=== PATIENT | female | born 1970 | race Caucasian/White ===

== ENCOUNTER 2021-03-18 12:13 | Emergency (ER) | payer BC, SELFPAY ==
--- NOTE | ~2021-03-18 | XR_ITS ---
EXAMINATION: XR TOES, LEFT CLINICAL INFORMATION: Trauma, pain third toe COMPARISON: None TECHNIQUE: AP view left foot and 2 views left third toe are obtained for a total of 3 views. FINDINGS: There is no acute or healing fracture or dislocation or destructive process. No periostitis or gas tracking in soft tissues. There is mild narrowing PIP joints without erosive change. The third toe distal phalanx is diminutive, possibly sequela from old trauma or congenital hypoplasia. There is probable old posttraumatic deformity second toe distal phalanx as well. A punctate density is seen overlying the lateral soft tissues proximal third toe of doubtful significance. XR/XR toe LT min 2V IMPRESSION: 1. No acute or healing fracture or destructive process. 2. Hypoplastic third toe distal phalanx versus old posttraumatic deformity.
[2021-03-18 12:35] VITALS: BP 141/103; PULSE 98; RESP 16; TEMP 37; O2SAT 99; BMI 31.6
[2021-03-18] MEDS: Acetaminophen 325 MG TABLET 975 MG PO (13:31)
[2021-03-18] MEDS: Diphth,Pertus(ACell),Tet Adult 0.5 ML SYRINGE IM (13:32)
--- NOTE | 2021-03-18 13:54 | ED.LOWEXIN ---
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) Type of Injury: other (dropped something on her foot ) Place: home Severity: mild Relieving factors: nothing Exacerbating factors: nothing Context: direct blow Associated symptoms: swelling Other symptoms: none Treatments prior to arrival: cold therapy Related Data Previous Rx's Medication Instructions Recorded acetaminophen [Tylenol Extra 1,000 mg PO QID PRN #14 tab 03/18/21 Strength] Allergies Allergy/AdvReac Type Severity Reaction Status Date / Time exenatide [From BYETTA] Allergy Severe ANAPHYLAXIS Unverified 06/17/20 17:12 erythromycin base AdvReac Intermediate STOMACH Unverified 06/17/20 17:12 [ERYTHROMYCIN BASE] UPSET WINE Allergy Unknown RASH Uncoded 06/17/20 17:12 Review of Systems Review of Systems: Constitutional : No changes in activity, No lethargy, No recent prior head injury, No agitation, No increased fussiness ENT/Mouth : No Ear Pain, No Nasal discharge/drainage Eyes: No Eye Pain, No Swelling, No Redness, No Foreign Body, No Vision Changes Cardiovascular : No Chest Pain, No SOB Respiratory : No Cough Gastrointestinal : No Nausea, No Vomiting, No abdominal Pain Genitourinary : No Dysuria, No Urinary Frequency, No Urinary Incontinence, No Urgency, No Flank Pain Musculoskeletal : + joint pain, No neck stiffness, No back pain/injury Skin : No lacerations Neuro : No unsteady gait, No Paresthesias, No Loss of Consciousness, No altered mental status, No Headache Yes all other systems are reviewed and are negative [facility] Past Medical History Attestation statement: The following information was validated with the patient. Social History Social History Advance Directives: No Advance Directives Information Provided: No Patient : No Physical Exam Vital Signs: Vital Signs: Last Vital Signs Temp 98.6 F 03/18/21 12:35 Pulse 98 03/18/21 12:35 Resp 16 03/18/21 12:35 BP 141/103 H 03/18/21 12:35 Pulse Ox 99 03/18/21 12:35 Body Mass Index 31.6 vital signs have been reviewed as normal and appeared to be correct. Blood pressure normal. Heart rate normal. Respiration rate normal. Temperature normal. Oxygen saturation normal. Appearance: Alert. Oriented X3. No acute distress. Head: Normal external exam. Normocephalic. Atraumatic. Eyes: PERRLA. EOMI. Conjunctiva and sclera normal. Eyelids normal. ENT: Pharynx normal. Uvula midline. Moist mucous membranes. Neck: Normal inspection. Neck supple. FROM. No adenopathy. No meningeal signs. No neck mass noted. CVS: Normal heart rate and rhythm. Heart sound normal. Pulses normal throughout. No murmurs/rales/gallops. Respiratory: No respiratory distress. Painless inspiration. Breath sounds normal. No wheezes/rales/rhonchi noted. Chest nontender. No accessory muscle usage noted or decreased air movement noted. Abdomen: Soft and nontender. Bowel sounds normal in all 4 quadrants. No distention noted. No organomegaly noted. No visible injury noted. Back: Full range of motion noted. No rashes/lesion/induration/fluctuance or signs of infection noted. Skin: Skin warm and dry. Normal skin color. Normal skin turgor. No rashes/lesions/lacerations noted. Extremities: Patient with tenderness to palpation at the MCP with a superficial abrasion. No active bleeding or signs of infection. No obvious deformities or laxity noted. Otherwise all other Extremities exhibit normal range of motion. Extremities nontender. Neuro: Oriented X 3. No motor deficit. No sensory deficit. Reflexes normal. Normal steady gait. No focal neuro deficits noted. Vascular: + radial pulses/+ 2 distal pedal pulses/+2 dorsalis pedis b/l. Normal cap refill. No cyanosis noted to upper extremity nails and lower extremity toes nails. Course Course Course Narrative: 50-year-old female presenting to the ED after she dropped something from the cabinet onto her left foot/toe she reports that she is having pain. X-ray negative for any acute processes. Patient has a superficial abrasion. No sutures indicated at this time. Updated the patient's tetanus at this time. Will DC home with symptomatic treatment instructions return if any new or worsening symptoms to follow up with primary care provider. Patient understands agrees with this plan. MDM - Extremity Injury (Lower) Medical Records Attestation: I reviewed the patient's medical records. Imaging Data Left foot x-ray: Attestation: I personally reviewed and interpreted this imaging study as follows: Radiologist's impression: FINDINGS: There is no acute or healing fracture or dislocation or destructive process. No periostitis or gas tracking in soft tissues. There is mild narrowing PIP joints without erosive change. The third toe distal phalanx is diminutive, possibly sequela from old trauma or congenital hypoplasia. There is probable old posttraumatic deformity second toe distal phalanx as well. A punctate density is seen overlying the lateral soft tissues proximal third toe of doubtful significance. XR/XR toe LT min 2V IMPRESSION: 1. No acute or healing fracture or destructive process. 2. Hypoplastic third toe distal phalanx versus old posttraumatic deformity. Discharge Plan Discharge Clinical Impression: Foot sprain, Abrasion foot/toe Patient Disposition: Home, Self-Care Instructions: Foot Sprain (ED), Abrasion (ED) Prescriptions: New acetaminophen [Tylenol Extra Strength] 500 mg tablet 1,000 mg PO QID PRN (Reason: fever or pain) Qty: 14 RF: 0 Referrals: Dameon Orlando MD [Primary Care Provider] - 2 days Print Language: Algerian
== END 2021-03-18 14:07 | disposition home or self-care (01) ==
PROVIDERS: Emergency Provider Emergency Medicine; PCP Internal Medicine
DX: S93.602A Unspecified sprain of left foot, initial encounter (principal); S90.812A Abrasion, left foot, initial encounter; W20.8XXA Other cause of strike by thrown, projected or falling object, initial encounter; Y93.9 Activity, unspecified; Y92.9 Unspecified place or not applicable; Y99.9 Unspecified external cause status
CPT/HCPCS: 73660; 90471; 90715; 99283; 99284

== ENCOUNTER 2021-10-29 15:17 | Outpatient (REF) | payer BC, SELFPAY | END 2021-10-29 15:18 | disposition home or self-care (01) | LOC: HO.LNP 15:17 | PROVIDERS: Visit Provider Physician Assistant Medical | DX: Z20.822 Contact with and (suspected) exposure to COVID-19 (principal) | CPT/HCPCS: U0003; U0005 ==

== ENCOUNTER 2025-07-03 08:44 | Outpatient (AMB) | payer OTHER, SELFPAY ==
--- NOTE | 2025-07-03 08:51 | A.OFFVIS_ITS ---
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 States she was seen at [facility] for trigger fingers where she received an injection in bilateral middle fingers on 12/13/24. States injection helped has helped her left middle finger however she has limited ROM. Her right middle finger is currently worse and would like to surgical intervention. 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 States she was seen at [facility] for trigger fingers where she received an injection in bilateral middle fingers on 12/13/24. States injection helped has helped her left middle finger however she has limited ROM. Her right middle finger is currently worse and would like to surgical intervention. 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 Neuro: Normal sensation of the tips of all digits of the right hand at this time Vascular: Cap refill brisk Pain: Tenderness to the A1 fatemeh of the right middle finger Pain associated with locking and catching of the right middle finger ROM: There is a visible and palpable locking and catching of the right middle finger in a flexed position Patient is able to flex and extend all other digits of the right hand fully and without difficulty Skin: No lacerations or abrasions. General: No ecchymosis, erythema, or evidence of infection. Psych: Appears grossly normal Affect normal Attitude cooperative Assessment & Plan Assessment & Plan (1) Trigger finger, right middle finger: Code(s): M65.331 - Trigger finger, right middle finger Category: Medical Plan 1. Right middle finger trigger finger I educated the patient about the condition. I discussed both operative and nonoperative treatment options. The patient would like to proceed with surgery. \ The risks and benefits of operative treatment were discussed with the patient and the patient wishes to proceed with surgery. These risks include, but are not limited to, risk of damage to blood vessels, nerves, tendons, infection, recurrence, incomplete relief of preoperative symptoms, persistent pain, possible need for further surgery, and the risks associated with regional blocks and/or anesthesia. Plan is to take the patient to the operating room at some point in the next few weeks for the following procedures: 1. Right middle finger trigger release under local All of the preoperative paperwork including the consent was discussed today. All of the patient's questions were answered in the clinic today. The patient understands that they will be in contact with our termite exterminator helper to discuss scheduling their procedure. Patient reports diabetes, last A1c 6.1 Denies blood thinners, asthma, heart issues, lung issues, kidney issues, or current smoking. Medications: Discontinued cephalexin Discontinued Reason: Patient Completed Course 500 mg PO BID 10 days 20 caps 0RF Coding Level of Care Code New Pt Level 4 (22463) Diagnoses Trigger finger, right middle finger M65.331
[2025-07-03 08:52] VITALS: BMI 29.1
--- OUTSIDE RECORDS SUMMARY | 2025-07-03 09:07 | XMS_ITS | Clinical Summary ---
Author Organization [facility] Address [address] [place] [address] Phone Care Team Providers Care Bottle Filler Name Role Phone Dameon Orlando MD Primary Care Provider [phone] Allergies Active Allergy Reactions Criticality Noted Date Comments Erythromycin 03/17/2014 Other 03/17/2014 Medications metFORMIN XR (GLUCOPHAGE-XR) 500 MG 24 hr tablet Take 1,000 mg by mouth 1 Active glipiZIDE (GLUCOTROL XL) 5 MG 24 hr tablet Take 2 tablets by mouth 1 (one) time each day 1 Active EPINEPHrine 0.3 MG/0.3ML solution prefilled syringe INJECT ONE SYRINGE NEEDED FOR ANAPHYLACTIC REACTION 1 Active OMEPRAZOLE MAGNESIUM PO Take by mouth Act alec VITAMIN D, CHOLECALCIFEROL , PO Take by mouth 1 (one) time each day Active ascorbic acid (VITAMIN C) 500 MG tablet Take 500 mg by mouth 1 (one) time each day Active hydrocortisone 2.5 % cream Apply thin layer to affected area bid, 2 weeks per month only 9 Active sertraline (ZOLOFT) 25 MG tablet Take 25 mg by mouth 1 (one) time each day Active LORazepam (ATIVAN) 1 MG tablet Take 1 mg by mouth every 6 (six) hours if needed for anxiety Active carBAMazepine (TEGretol) 200 MG tablet Take 200 mg by mouth 3 (three) times a day Active Active Problems Problem Noted Date Diagnosed Date Stage 3 chronic kidney disease 11/29/2020 Menometrorrhagia 02/25/2020 Overview (06/29/2021): Last Assessment & Plan: Continue on Aygestin and consider discontinuation next year. Multiple nodules of lung 08/07/2017 Overview (06/29/2021): 3mm in right RUL and 2mm in LLL. Non-smoker. No further work up needed Recurrent major depression in partial remission 02/15/2017 Family history of malignant neoplasm of breast 0 01/01/2015 Overview (06/29/2021): Last Assessment & Plan: Will schedule MRI for this month. Hyperlipidemia 06/22/2014 Overview (06/29/2021): IMO update FH: premature coronary heart disease 03/17/2014 Allergy to food 03/17/2014 Type 2 diabetes mellitus 03/17/2014 Immunizations Immunization Administration Dates Next Due Influenza TIV (IM) 08/22/2016,06/21/2015 Influenza, MDCK, PF, Quadrivalent 08/08/2019 Influenza, MDCK, Quadrivalent, with preservative 06/27/2017 Pfizer SARS-COV-2 12/20/2020,11/29/2020 Pneumococcal Polysaccharide 06/22/2014 Tdap 06/22/2014 Family History Medical History Relation Comments Coronary artery disease Father Heart attack Father Cancer Father's Sister Cancer Mother Cataracts Mother Coronary artery disease Mother Cancer Mother's Sister Heart attack Paternal Grandfather Cancer Paternal Grandmother Glaucoma Paternal Grandmother Coronary artery disease Sister Diabetes Sister Heart attack Sister Relation Status Comments Father Father's Sister Mother Mother's Sister Paternal Grandfather Paternal Grandmother Sister Social History Tobacco Use Types Packs/Day Years Used Date Smoking Tobacco: Never Smokeless Tobacco: Never Tobacco Cessation:Counseling Given: No Alcohol Use Standard Drinks/Week Comments Never 0 (1 standard drink = 0.6 oz pur e alcohol) Comments Unknown Sex and Gender Information Value Date Recorded Sex Assigned at Not on file Legal Sex Female 10:17 AM EDT Gender Identity Not on file Sexual Orientation Not on file Last Filed Vital Signs Vital Sign Reading Time Taken Comments Blood Pressure 124/80 06/30/2021 9:56 AM EDT Pulse 80 06/30/2021 9:56 AM EDT Temperature - - Respiratory Rate - - Oxygen Saturation 99% 06/30/2021 9:56 AM EDT Inhaled Oxygen Concentration - - Weight 85.2 kg (187 lb 12.8 oz) 06/30/2021 9:56 AM EDT Height - - Body Mass Index - - Plan of Treatment Health Maintenance Due Date Last Done Comments Breast Cancer Screening 1969 Hepatitis B Vaccine (1 of 3 - 19+ 3-dose series) 1988 Pneumococcal Vaccine: 50+ Ye ars (2 of 2 - PCV) 06/22/2015 06/22/2014 Colorectal Cancer Screening: Annual FOBT 2018 Colorectal Cancer Screening: Colonoscopy 2018 Colorectal Cancer Screening: Sigmoidoscopy 2018 Diabetes: Ophthalmology Exam 06/02/2021 05/15/2018, 07/15/2015 Diabetes: Pedal Pulse Checked 06/02/2021 Diabetes: Sensory Foot Exam 06/02/2021 Diabetes: Visual Foot Exam 06/02/2021 Diabetes: Hemoglobin A1C 09/02/2021 06/03/2021 Influenza Vaccine (#1) 2025 9, 06/27/2017, 08/22/2016, Additional history exists Pneumococcal Vaccine: Peds ( 0 to 5 Years) and At-Risk Patients (6 to 49 Years) Discontinued 06/22/2014 Insurance [facility] Care Teams Bottle Filler Relationship Specialty Start Date End Date Dameon Orlando MD PCP - General Internal Medicine 04/07/21
--- OUTSIDE RECORDS SUMMARY | 2025-07-03 09:07 | XMS_ITS | Encounter Summary ---
Author Organization [facility] Address [address] [place] [address] [place] [id number] Phone Care Team Providers Care Cable Machine Operator Name Role Phone Naida Salomon MD Primary Care Provider [phone] Reason for Visit * Reason Comments Medication Refill Encounter Details Date Type Department Care Team ([facility] st Contact Info) Description 06/25/2025 Refill [facility] Medicine [address] [place] [address] Naida Salomon MD [address] [facility] [address] [place] [address] [email or web address] Medication Refill Social History Tobacco Use Types Packs/Day Years Used Date Smoking Tobacco: Never Smokeless Tobacco: Never Alcohol Use Standard Drinks/Week Comments Not Currently 0 (1 standard drink = 0.6 oz pur e alcohol) Child or Family Care Answer Date Record ed Do you have problems with on e of the following making it difficult for you to work, study, or receive health care? No 05/18/2025 Education Answer Date Recorded Are you interested in help w ith more adult education (for example, completing high school, GED, job training, learning the Upper Sor[place] language, technical skills, or developing parenting skills)? No 05/18/2025 Are you concerned about learning? Not on file 05/18/2025 No 05/18/2025 Yes 05/18/2025 Food Answer Date Recorded Within the past 6 months we worried whether our food would run out before we got money to buy more. Never True 05/18/2025 Within the past 6 months the food we bought just didn't last and we didn't have enough money to get more. Never True Residential Stability Answer Date Recor ded What is your housing situation today? I have josesito cain 05/18/2025 How many times have you move d in the past 12 months? Zero (I did not move) 05/18/2025 Paying for Meds Answer Date Recorded Do you have trouble paying for medicines? No 05/18/2025 Paying Utility Bills Answer Date Record ed Do you have trouble paying your heating or elect ricity bill? Yes 05/18/2025 Transportation Answer Date Recorded Has the lack of transportati on kept you from medical appointments or from getting medications? No 05/18/2025 Unemployment Answer Date Recorded Are you currently unemployed or working on a part-time or temporary basis, and looking for work? No 03/27/2022 Digital Access Answer Date Recorded No 05/18/2025 Yes 05/18/2025 Do you have reliable internet access at home? Ye s 05/18/2025 Do you have a device (e.g., phone, tablet, computer) with a working camera? Yes 05/18/2025 Intimate Partner Violence Answer Date R ecorded Denied Basic Needs Not on file 05/18/2025 In the past 12 months have y ou been in a relationship with a person who hurts, threatens, or tries to control you? No 05/18/2025 Worried food would run out Not on file 05/18 In the past 12 months have y ou been in a relationship with a person who hurts, threatens, or tries to control you? No 05/18/2025 Comments Unknown Sex and Gender Information Value Date Recorded Sex Assigned at Female 03/27/2022 7:38 PM EDT Legal Sex Female 5:49 PM EST Gender Identity Female 03/27/2022 7:38 PM EDT Sexual Orientation Not on file documented as of this encounter Progress Notes * Lilian Granger - 06/25/2025 1:50 PM EDT Duplicate request. RX was signed on 06/23/2025 with 4 total fills. 1 RX filled on 09/23. 3 refills remaining. documented in this encounter Plan of Treatment Upcoming Encounters Date Type Department Care Team (Late st Contact Info) Description 05/18/2025 Procedure Pass [address] [id number] 07/20/2025 10:15 AM EDT Nurse Only [facility] [address] [place] [id number] Naida Salomon MD [address] [place] [address] [address] [place] [address] 11/09/2025 12:30 PM EST Office Visit [facility] Endocr[facility]ology [address] [phone] Jelena Swain PA-C [address] [place] [phone] 02/01/2026 9:15 AM EDT Appointment [address] [address] Naida Salomon MD [address] [place] [phone] documented as of this encounter Visit Diagnoses Diagnosis Hyperlipidemia with target low density lipoprotein (LDL) cholesterol less than 100 mg/dL documented in this encounter Additional Health Concerns Assessment Noted Time PHQ-9 Depression Total Score: 9 05/18/20 7:08 AM EDT PHQ-2 Depression Total Score: 2 05/18/20 7:08 AM EDT documented as of this encounter Care Teams Cable Machine Operator Relationship Specialty Start Date End Date Naida Salomon MD [address] [place] [phone] PCP - General Family Medicine 12/12/21 documented as of this encounter Additional Source Comments The information contained in this document represents components of the legal health record. It is not the complete legal health record.[facility]
--- OUTSIDE RECORDS SUMMARY | 2025-07-03 09:08 | XMS_ITS | Clinical Summary ---
Author Organization [facility] Address [address] [place] [phone] Phone Care Team Providers Care Creative Producer Name Role Phone Naida Salomon MD Primary Care Provider [phone] Allergies Active Allergy Reactions Criticality Noted Date Comments Aspirin 08/28/2023 Exenatide High 03/27/2022 Erythromycin 03/17/2014 Medications buPROPion (WELLBUTRIN SR) 100 MG SR 12 hr tablet 022 Active EPINEPHrine (SYMJEPI) 0.3 mg/0.3 mL syringe INJECT ONE SYRINGE NEEDED FOR ANAPHYLACTIC REACTION 021 Active ondansetron (ZOFRAN-ODT) 4 MG disintegrating tablet Take 1-2 tablets (4-8 mg total) by mouth every 8 (eight) hours as needed for nausea. 90 tablet 3 023 Active BENEFIBER, GUAR GUM, ORAL Take by mouth. Activ e amitriptyline (ELAVIL) 25 MG tablet Take 1 po bid 60 tablet 1 024 Active Additional Information Patient not taking.Reported on 05/18/2025 metFORMIN (GLUCOPHAGE-XR) 500 MG 24 hr tabletIndications :Type 2 diabetes mellitus TAKE TWO TABLETS BY MOUTH EVERY MORNING AND TAKE TWO TABLETS BY MOUTH EVERY EVENING 360 tablet 3 024 Active Additional Information Patient taking differently: 500 mg in the AM and 1000 MG in the PM, Reported on 05/18/2025 meloxicam (MOBIC) 15 MG tablet Take 1 tablet (15 mg total) by mouth daily as needed for pain (specific location in comments). 024 Active empagliflozin (JARDIANCE) 10 mg tabletIndications :Well controlled type 2 diabetes mellitus Take 1 tablet (10 mg total) by mouth daily. 90 tablet 1 025 Active glipiZIDE (GLUCOTROL XL) 5 MG 24 hr tabletIndications :Well controlled type 2 diabetes mellitus Take 1 tablet (5 mg total) by mouth daily before breakfast. 90 tablet 1 025 Active FREESTYLE RAYMUNDO 3 PLUS SENSOR Enma Change sensor as directed every 15 days 2 each 025 Active atorvastatin (LIPITOR) 10 MG tabletIndications :Hyperlipidemia with target low density lipoprotein (LDL) cholesterol less than 100 mg/dL Take 1 tablet (10 mg total) by mouth daily. 90 tablet 3 025 Active FREESTYLE RAYMUNDO 3 SENSOR Enma CHANGE SENSOR EVERY 14 DAYS 2 each 024 2024 Discontinued atorvastatin (LIPITOR) 10 MG tabletIndications :Hyperlipidemia with target low density lipoprotein (LDL) cholesterol less than 100 mg/dL take one tablet by mouth once daily 90 tablet 3 024 2024 Discontinued(R warren) Hospital, Clinic, or Other Facility Administered Medication Ordered Dose Route Frequency Start Date End Date Status cyanocobalamin (VITAMIN B-12) 1,000 mcg/mL injection 1,000 mcgIndications:B12 deficiency 1000 mcg IM Every 30 days 08/04/2024 07/30/2025 Active cyanocobalamin (VITAMIN B-12) 1,000 mcg/mL injection 1,000 mcgIndications:B12 deficiency 1000 mcg IM Every 2 Months 05/18/2025 Active Active Problems Problem Noted Date Diagnosed Date Delayed gastric emptying 05/18/2025 Leg cramps 02/02/2025 Assessment & Plan (02/02/2025 9:03 AM EDT): She has been having leg cramps recently and she does not normally getting these. She is hydrating well and keeping up with her electrolyte intake. She also had a period where we was inside and warm and her toes went numb, cold, and white. This is happening at the same time as the leg cramps. Discussed messaging Dr Salomon for a possible referral to see vascular Pain in both hands 11/24/2024 Elevated antinuclear antibody (STANLEY) level 2024 Assessment & Plan (12/03/2024 3:57 PM EST): Current symptoms may be part of ongoing rheumatologic concern. She should be sure to discuss these symptoms with th brownell operator at her appointment next week. Fatigue 07/07/2024 Assessment & Plan (07/07/2024 10:03 AM EDT): She has been having constant fatigue. Will order labs to rule out possible causes of the fatigue Memory difficulty 07/07/2024 Assessment & Plan (07/07/2024 10:07 AM EDT): For the last month and a half, she has had several issues with her memory. She is having a hard time with recalling passwords she has used for 15 years, she is able to describe the word but cannot recall what the word is. She is having issues with recalling names even though able to see what it is she is talking about. She is having issues with remembering procedure type things, especially when coming to her medications, like did she take the medication or how she is supposed to take the medication. She is also having issues with balance and spatial perception. Told her to reach out to her PCP to discuss this to see what is needed for work up as her glucose levels are under great control and not the cause of these issues B12 deficiency 05/19/2024 Assessment & Plan (07/07/2024 10:02 AM EDT): She had the blood work done 3-4 days after her b-12 injection Well controlled type 2 diabetes mellitus 024 Assessment & Plan (05/05/2025 12:59 PM EDT): Control is very good based upon the patient's freestyle raymundo 3 sensor download. No frequent or severe hypoglycemia. She has been having some lows in the morning recently. She will correct and is fine. Discussed after her up coming vacation, we consider lowering her glipizide from 5 mg daily to 2.5 mg to see if this will stop the lows. She will reach out when she needs the prescription. Continue to work on eating healthy and being active. To call or message with any issues managing her glucose levels. Up to date with [facility]. Labs ordered Assessment & Plan (02/02/2025 8:58 AM EDT): Control is very good based upon the patient's freestyle raymundo 3 sensor download. No frequent or severe hypoglycemia. Her glucose levels are doing well over all. Will maintain her regimen. Continue to work on eating healthy and being active. To call or message with any issues managing her glucose levels. Up to date with [facility]. Reviewed recent labs. Assessment & Plan (07/07/2024 10:02 AM EDT): Control is very good based upon the patient's freestyle raymundo 3 sensor download. She is having a lot of lows on the sensor download but she does not feel low. She doesn't think she has had any true lows. Will have her hold her glipizide and increase her jardiance to 25 mg to improve her control with no risk of hypoglycemia. Continue to work on eating healthy and being active. To call or message with any issues managing her glucose levels. Up to date with [facility]. Reviewed recent labs Assessment & Plan (04/25/2024 11:35 PM EDT): Recent difficulty in controlling blood glucose levels despite no significant changes in diet or medication regimen. Patient reports decreased physical activity and increased fatigue. Current medications include Metformin 1000mg BID, Jardiance 10mg daily, and Glipizide 5mg in the morning. Recent A1C was 6.4 and average blood glucose over the past two weeks was 145. Time in range 83%. No frequent or severe hypoglycemia. -Decrease Metformin to 1 tablet in the morning and continue 2 tablets in the evening to see if bloating is better. -If blood sugars increase with lower Metformin dose, consider increasing Jardiance to 25mg daily. -Encourage patient to resume regular exercise. -Encourage patient to schedule a dilated eye exam, as it has been a couple of years since the last one. -Advise patient to take Vitamin B12 regularly. -Encourage patient to ensure adequate daily intake of calcium (1200mg) for bone health. -Recommend patient to review exercises for bone health on the [employer] website. Complicated migraine 01/16/2024 Ganglion cyst of finger of right hand 09/12/2023 Gastroparesis 11/27/2022 Assessment & Plan (11/27/2022 8:36 PM EST): Mild, on emptying study. No new tx options to be added for now, will work on better glucose control. Congenital dysplasia of left hip 03/27/2022 Slow transit constipation 03/27/2022 Assessment & Plan (03/27/2022 7:35 PM EDT): Given long hx of abd pain w/ mixed diarrhea/constipation, I think her constipation sounds c/w IBS/mixed. However, I think she should be evaluated by GI for a thorough eval w/ consideration for gastroparesis, though I am not concerned enough about this to defer rx'ing dulaglutide. Recommend daily fiber supplement (psyllium or rice bran). Mixed conductive and sensori neural hearing loss of both ears 03/27/2022 Assessment & Plan (03/27/2022 7:32 PM EDT): Input referral for audiology testing, possibly an executive dysfxn component but difficult to say. Idiopathic anaphylaxis 03/27/2022 Assessment & Plan (03/27/2022 7:25 PM EDT): Discussed possibility of mast cell syndrome leading to anaphylaxis and food reactions. Recommend eval w/ Dr Brownlee for 2nd opinion, consider limbic retraining if that is an option. Stage 3 chronic kidney disease 11/29/2020 Assessment & Plan (11/27/2022 8:36 PM EST): Recheck renal fxn w/ new set of labs. Assessment & Plan (03/27/2022 7:35 PM EDT): Discussed slow progression of CKD in most people, even w/ diabetes. Will continue to f/u with nephrology and manage chronic conditions steadily. Recommend vit D supplementation. Multiple pulmonary nodules 08/07/2017 Overview (09/12/2023): 3mm in right RUL and 2mm in LLL. Non-smoker. No further work up needed Recurrent major depression in partial remission 02/15/2017 Assessment & Plan (11/27/2022 8:35 PM EST): We discussed motivation re health and my own optimism about her being able to have significant health improvement in near future. Just need to better manage her diabetes and I think her mental and physical well being will improve. No chg to meds but can revisit this in future. Family history of malignant neoplasm of breast 0 01/01/2015 Overview (09/12/2023): Last Assessment & Plan: Will schedule MRI for this month. Last Assessment & Plan: Will schedule MRI for this month. Hyperlipidemia with target l ow density lipoprotein (LDL) cholesterol less than 100 mg/dL 06/22/2014 Overview (05/24/2023): IMO update ASCVD score 5.2% Assessment & Plan (03/27/2022 7:25 PM EDT): Recheck lipids today given diabetic, considerations re statin management. Family history of ischemic h eart disease and other diseases of the circulatory system 03/17/2014 Type 2 diabetes mellitus wit h stage 3b chronic kidney disease, without long-term current use of insulin Assessment & Plan (10/18/2024 8:05 PM EST): Patient reports worsening control after glipizide dose was decreased in the morning and Jardiance dose increased in July. She tolerates the 1500 mg metformin daily. She had bothersome polyuria every hour during the day on the higher dose of Jardiance. She decided to go back to her old dose of glipizide 5 mg in the morning and hold Jardiance of 10 mg in the morning about a week ago and reports improvement in blood sugars. She is happy about improved polyuria during the day and has nocturia only once. She tends to get dehydrated easily. She gets muscle cramps and palpitations. Takes potassium and magnesium supplement at night. -Will keep current diabetes meds for now. -Continue to work on carb controlled meals and regular exercise. Patient is planning to start using her treadmill after dinner. -Reviewed symptoms, prevention and treatment of hypoglycemia. -Call with blood sugar problems Assessment & Plan (12/12/2023 10:40 AM EDT): Control is good based upon the patient's freestyle raymundo 3 sensor download. No frequent or severe hypoglycemia. Discussed how to use the sensor to be able to trial new foods to see how her glucose levels tolerate it. She is very appreciative of this. Her vitamin B12 level is low normal- likely due to the rodent exterminator use of metformin. Will have her start 100 mcg daily of vitamin B12 available over the counter. Will recheck her levels at her next visit. Continue to work on eating healthy and trying to be active. To call or message with any issues managing her glucose levels. Due to schedule ophtho. Labs ordered to be done prior to next visit Assessment & Plan (08/28/2023 9:58 AM EST): Significant improvement in control within the last year with A1c down to 6.5% in 08/2023 from 8.8% a year ago. Raymundo 3 CGM download reviewed showing still some spikes related to meals and some overnight mild sustained hypoglycemia. She has been on maximum dose of metformin and 10 mg of glipizide daily with some mild hypoglycemia overnight. She has been working with mat worker and made progress in working on mealtime consistency and portion control. LDL cholesterol has decreased by close to 50% on 10 mg atorvastatin since the end of summer. Last labs on 08/05/2023 showed improvement in the renal function with creatinine 0.9 and estimated GFR of 75 from 60 in March. Because of her intermittent hypoglycemia we decided to wean down/off the glipizide. She will stopped the p.m. dose and continue the morning dose of 5 mg before breakfast for now. We decided to add Jardiance 10 mg daily to decrease progression of kidney disease, decrease cardiovascular disease risk, help to lose some weight and improve blood sugars. Possible side effects discussed including genital yeast infection, dehydration, polyuria. Hoping to stop the glipizide few weeks after she started the Jardiance. She will continue the metformin. Congratulated on her efforts to improve her meal plan and doing regular exercise. Labs in early November and follow-up after labs. Assessment & Plan (06/13/2023 9:03 AM EDT): Control is very good based upon the patient's freestyle raymundo 3 sensor download. No frequent or severe hypoglycemia. She had a couple minor lows in the morning, she corrected and was fine. Will maintain her regimen. Continue to work on eating healthy and being active. To call or message with any issues managing her glucose levels. Due to schedule ophtho. Assessment & Plan (05/13/2023 7:34 PM EDT): 52-year-old woman was referred for diabetes management. Prediabetes and her mid 20s. Gestational diabetes treated with diet and exercise in 2004. After delivery started on glipizide and metformin added in 2020. A1c was up at 8.8% in 03/2022 when the Trulicity 0.75 mg added. Her A1c improved to 7.8% x 11/2022 when the Trulicity dose was increased to 1.5 mg weekly. Last A1c down to 6.8% in 03/2023. Unfortunately she did not tolerate the higher dose with side effects of nausea, vomiting and constipation. Has history of gastroparesis. Her latest estimated GFR is 60 with creatinine 1.1. Urine microalbumin to creatinine ratio is normal. She has physical exam finding of peripheral neuropathy and some paresthesia on her feet for years. Currently on 5 mg glipizide ER twice a day and metformin ER 1000 mg twice a day her fasting sugars could be down to the 60s when skips food after 7 PM. After meal blood sugars are up to the 180s. She is having problem controlling emotional eating mostly at night. She has appointment scheduled with [facility] on 05/08/2023. She started walking more regularly about a month ago. Congratulated on her efforts to improve her diabetes control. She is aware of her goal A1c below 7% and keeping her blood sugars between 70-180 over 70% of the time. We discussed symptoms, prevention and treatment of hypoglycemia. She was interested in using a home CGM, sent prescription on the new [employer] raymundo 3 CGM. If her blood sugars are getting below the 70s repeatedly, she will need to decrease her glipizide. She will remove the p.m. dose glipizide from bedtime to before the evening meal. To have labs after 07/13/2023 to check A1c, B12, CMP and repeat a fasting lipid profile. She has a very strong family history of cardiovascular disease. Her last LDL was over target at 127 in 03/2023, currently not on a statin. We discussed the importance to control her cardiovascular risk factors. She is up-to-date with eye exam, no diabetic retinopathy. Call if blood sugars below 70 or over 250 repeatedly. Assessment & Plan (11/27/2022 8:38 PM EST): Double dose of trulicity to 1.5mg weekly. Also referred to endocrinology to access more specific nutrition counseling and glucose monitoring as I fear she is having s/s hyperglycemia despite her a1c looking much improved. Possibly will need cgm to better ascertain BG spikes and lows. Also recommend working w behaviorally oriented mat worker at [facility] given her binge cycle. Assessment & Plan (03/27/2022 7:31 PM EDT): Currently on metformin and glipizide, and per pt report, FSBG are still outside of control. Discussed impact of stress/trauma on hyperglycemia in addition to carbohydrate intake and exercise. Discussed GLP agonists as helpful therapy; will likely require prior auth and may need copay program assistance if expensive. Recommend dulaglutide (Trulicity) as that is what is recommended by insurance formulary. Resolved Problems Problem Noted Date Diagnosed Date Resolved Date Menometrorrhagia 02/25/2020 09/12/2023 Overview (09/12/2023): Continue on Aygestin and consider discontinuation next year. Encounters Date Type Department Care Team Description 06/25/2025 Refill [facility] [address] [place] [address] Naida Salomon MD Medication Refill 06/15/2025 Refill [facility] [address] [place] [address] Jessica Rodriguez MD Medication Refill 06/10/2025 Ancillary Orders [facility] [address] [place] [address] Unknown, Unknown, 06/10/2025 Ancillary Orders [facility] [address] [place] [address] Unknown, Unknown, 06/10/2025 Ancillary Orders [facility] [address] [place] [address] Unknown, Unknown, MD 05/18/2025 8:00 AM EDT Office Visit [facility] [address] [place] [address] Naida Salomon MD Annual physical exam (Primary Dx); B12 deficiency; Delayed gastric emptying; Left hip pain; Screening mammogram for breast cancer; Need for prophylactic vaccination against Streptococcus pneumoniae (pneumococcus) 05/04/2025 1:10 PM EDT Office Visit [facility] Endocrinology [address] [phone] Jelena Swain PA-C Well controlled type 2 diabetes mellitus (Primary Dx) 04/27/2025 9:41 AM EDT - 04/27/2025 11:59 PM EDT Hospital Encounter [facility] [address] [place] [address] Ana Rosa Penaloza NP Discharge Disposition: Home or Self Care from Last 3 Months Immunizations Immunization Administration Dates Next Due COVID-19, Unspecified Formulation 12/20/2020,10/2020 Hepatitis B Adult 07/21/2024,02/15/2024,01/16/20 24 INFLUENZA, SPLIT VIRUS, TRIV ALENT W/ PRESERVATIVE IM 08/22/2016,06/21/2015 Influenza Quadrivalent MDCK Preservative Free IM 08/08/2019 Influenza Quadrivalent MDCK w/Preservative IM 06/27/2017 Influenza Quadrivalent Prese rvative Free IM 07/21/2023,07/25/2022,10/03/2020,10/03 Influenza, Unspecified Formulation 07/21/2023 Pneumococcal conjugate PCV20 05/18/2025 Pneumococcal polysaccharide PPSV23 06/22/2014 Tdap 03/18/2021,06/22/2014 Family History Medical History Relation Comments Osteoarthritis Mother Relation Status Comments Mother Social History Tobacco Use Types Packs/Day Years Used Date Smoking Tobacco: Never Smokeless Tobacco: Never Tobacco Cessation:Counseling Given: Not Answered Alcohol Use Standard Drinks/Week Comments Not Currently [...] high school, GED, job training, learning the Tristan[place] language, technical skills, or developing parenting skills)? [...] your housing situation today? I have josesito sing 05/18/2025 How many times have you move [...] PM EDT Sexual Orientation Not on file Last Filed Vital Signs Vital Sign Reading Time Taken Comments Blood Pressure 122/74 05/18/2025 7:59 AM EDT Pulse 79 05/18/2025 7:59 AM EDT Temperature 36.2 C (97.2 F) 05/18/2025 7:59 AM EDT Respiratory Rate 12 02/02/2025 8:24 AM EDT Oxygen Saturation 99% 05/18/2025 7:59 AM EDT Inhaled Oxygen Concentration - - Weight 79.2 kg (174 lb 9.6 oz) 05/18/2025 7:59 A M EDT Height 163.8 cm (5' 4.5 ) 05/18/2025 7:59 AM EDT Body Mass Index 29.51 05/18/2025 7:59 AM EDT Plan of Treatment Upcoming Encounters Date Type Department Care Team (Late st Contact Info) Description 05/18/2025 Procedure Pass [facility] [address] [place] [address] 07/20/2025 10:15 AM EDT Nurse Only [facility] [address] [place] [address] Naida Salomon MD [address] [facility], [address] [place] [address] [email or web address] 11/09/2025 12:30 PM EST Office Visit [facility] Endocrinology [address] [phone] Jelena Swain PA-C [address] [place] [address] 02/01/2026 9:15 AM EDT Appointment [address] [address] Naida Salomon MD [address] [facility], [address] [place] [address] [email or web address] Health Maintenance Due Date Last Done Comments HEPATITIS C SCREENING 12/09/1987 HIV ONE-TIME SCREENING (18-65 YEARS) 12/09/1987 COLONOSCOPY 2014 FIT TEST 2014 FOBT 2014 SIGMOIDOSCOPY 2014 VIRTUAL COLONOSCOPY 2014 RSV VACCINE (1 - Risk 50-74 years 1-dose series) 12/09/2019 ZOSTER VACCINES (1 of 2) 12/09/2019 INFLUENZA VACCINE (#1) 2025 , 07/21/2023, 07/25/2022, Additional history exists COVID-19 VACCINE ( season) 2025 09/07/2024, 09/16/2023, 12/20/2020, Additional history exists DIABETIC EYE EXAM 06/03/2025 06/03/2024, , 07/15/2015 MAMMOGRAM 09/13/2025 09/13/2023, 08/31, 09/07/2022, Additional history exists HEMOGLOBIN A1C 10/28/2025 04/27/2025, 12/30, 10/07/2024, Additional history exists BLOOD PRESSURE 11/18/2025 05/18/2025 COLOGUARD 04/23/2026 04/23/2023 COLORECTAL CANCER SCREENING 04/23/2026 CREATININE LEVEL 04/27/2026 04/27/2025, , 11/10/2024, Additional history exists DEPRESSION SCREENING 05/18/2026 05/18/2025, 05/18/20 25 PAP SMEAR 01/15/2027 01/16/2024, 02/01/2021 Adult Td,Tdap Booster 03/18/2031 03/18/2021, 014 PNEUMOCOCCAL VACCINES (50+ years) Completed 05/18/2025, 06/22/2014 SMOKING STATUS SCREENING (Once After 26 Yrs) Completed 05/18/2025 HEPATITIS A VACCINES Aged Out No long er eligible based on patient's age to complete this topic HIB VACCINES Aged Out No longer eligi ble based on patient's age to complete this topic MENINGOCOCCAL VACCINES (ACWY) Aged Out No longer eligible based on patient's age to complete this topic MENINGOCOCCAL VACCINES (B) Aged Out N o longer eligible based on patient's age to complete this topic Medical Devices Not on file Procedures Procedure Name Priority Date/Time Associated Diagnosis Comments HEMOGLOBIN A1C Routine 04/27/2025 9:54 AM EDT Well controlled type 2 diabetes mellitus ALANINE AMINOTRANSFERASE (ALT) Routine 04/27/2025 9:54 AM EDT Well controlled type 2 diabetes mellitus ASPARTATE AMINOTRANSFERASE (AST) Routine 04/27/2025 9:54 AM EDT Well controlled type 2 diabetes mellitus BASIC METABOLIC PANEL Routine 04/27/2025 9:54 AM EDT Well controlled type 2 diabetes mellitus VITAMIN B12 Routine 04/27/2025 9:54 AM EDT Well controlled type 2 diabetes mellitus HM DIABETES EYE EXAM FOR RESULT ENTRY ONLY Routine 06/03/2024 4:09 PM EDT PAP TEST Routine 01/16/2024 12:00 AM EDT BI MAMMOGRAM OUTSIDE (NO INTERPRETATION) Routine 09/13/2023 12:00 AM EST from Last 3 Months or Most Recently Relevant to Health Maintenance Results * Alanine aminotransferase (ALT) (04/27/2025 9:54 AM EDT) ALT 16 0 - 40 U/L [facility] Blood 04/27/2025 9:54 AM EDT 04/27/2025 9:58 AM EDT Jelena FAIR-Susanne LAB BLOOD ORDERABL ES Final Result Performing Organization Address City/[facility]/ZIP Co de Phone Number [address] [address] * Aspartate aminotransferase (AST) (04/27/2025 9:54 AM EDT) AST 20 0 - 37 U/L [facility] Blood 04/27/2025 9:54 AM EDT 04/27/2025 9:58 AM EDT Jelena FAIR-C LAB BLOOD ORDERABL ES Final Result Performing Organization Address City/[facility]/ZIP Co de Phone Number [address] [address] * (ABNORMAL) Hemoglobin A1c (04/27/2025 9:54 AM EDT) HEMOGLOBIN A1C 6.1(H) 4.3 - 5.8 % [facility] Blood 04/27/2025 9:54 AM EDT 04/27/2025 9:59 AM EDT Jelena FAIR-C LAB BLOOD ORDERABL ES Final Result Performing Organization Address City/[facility]/ZIP Co de Phone Number [address] [address] * Vitamin B12 (04/27/2025 9:54 AM EDT) VITAMIN B12 455 232 - 1,245 pg/mL [facility] Blood 04/27/2025 9:54 AM EDT 04/27/2025 9:58 AM EDT us Jelena Swain PA-C LAB BLOOD ORDERABL ES Final Result Performing Organization Address City/[facility]/ZIP Co de Phone Number [address] [address] * (ABNORMAL) Basic metabolic panel (04/27/2025 9:54 AM EDT) SODIUM 140 133 - 146 mmol/L [facility] CHLORIDE 104 96 - 108 mmol/L [facility] POTASSIUM 4.3 3.3 - 5.1 mmol/L [facility] CO2 23 21 - 35 mmol/L [facility] BUN 15 6 - 19 mg/dL [facility] CREATININE 1.00 0.5 - 1.5 mg/dL [facility] GLUCOSE 183(H) 70 - 99 mg/dL [facility] CALCIUM 9.7 8.4 - 10.3 mg/dL [facility] EGFR 67 >59 mL/min/1.7 3m2 [facility] Comment:Estimated glomerular filtration rate calculated using the CKD-EPI refit equation. ANION GAP 17 10 - 20 mmol/L [facility] Blood 04/27/2025 9:54 AM EDT 04/27/2025 9:58 AM EDT us Jelena Swain PA-C LAB BLOOD ORDERABL ES Final Result Performing Organization Address City/[facility]/ZIP Co de Phone Number [address] [address] * DIABETES EYE EXAM FOR RESULT ENTRY ONLY (06/03/2024 4:09 PM EDT) us Historical Provider HEALTH MAINTENANCE Final Result * Pap Test (01/16/2024 12:00 AM EDT) 01/16/2024 01/17/2024 8:5 9 AM EDT Narrative SEE NARRATIVE - 01/23/2024 9:42 AM EDT [address] [address] Assurance Senior Manager: Berenice Miller MD MENTAL MEASUREMENTS TEACHER Cytology Report FINAL DIAGNOSIS A. PAP SMEAR (SUREPATH) CE: SPECIMEN ADEQUACY: Satisfactory for evaluation; transformation zone present. INTERPRETATION: NEGATIVE FOR INTRAEPITHELIAL LESION OR MALIGNANCY. Electronically Signed Out By: COLLIN Galindo(ASCP) The Pap test is a screening test primarily for squamous cancers and precursors and has associated false-negative and false-positive results. New technologies such as liquid-based preparations may decrease but will not eliminate all false-negative results. Regular sampling and follow-up of unexplained clinical signs and symptoms are recommended to minimize false negative results. PROCEDURES/ADDENDA HPV Testing (Requested) Ordered Date: 01/17/2024 A. PAP SMEAR (SUREPATH) CE: Human Papilloma Virus Test NEGATIVE for high-risk Human Papilloma Virus types 16, 18, 45 and the Other high risk probe set (Includes 31, 33, 35, 39, 51, 52, 56, 58, 59, 66, 68) Note: Testing performed by [employer] Onclarity HR-HPV analysis. Clinical correlation is advised. This HPV test was performed at [facility], [address] [place] [address]. This test has been FDA approved for both SurePath and ThinPrep cervical cytology specimens. The accuracy and precision of this test for all other specimen sources has been verified in the Cytopathology Laboratory of the [facility] and has not been cleared or approved by the U.S. Food and Drug Administration. Clinical correlation is advised. CLINICAL HISTORY Date of Last Menstrual Period: 01-16-2024 Other Clinical Conditions: Screening Pap SPECIMEN SOURCE A: PAP SMEAR (SUREPATH) CE Patient Name: ADRIENNE PRESTON : 1970 (Age: 53) Sex: F Institution: [facility] Location: [facility] Date of Collection: 01/16/2024 Date of Reported: 01/23/2024 09:42 Results to: Naida Manzanares MD us Naida Salomon MD CYTOLOGY ORDERABLES Final Result SEE NARRATIVE * Mammogram Outside (No Interpretation) (09/13/2023 12:00 AM EST) Narrative Record, 06/10/2025 3:39 PM EDT This study is for PACS storage only and not for interpretation. Procedure Note Record, 06/10/2025 This study is for PACS storage only and not for interpretation. us Unknown Unknown MD IMG OUTSIDE IMAGING W/OUT INT ERPRETATION Final Result from Last 3 Months or Most Recently Relevant to Health Maintenance Insurance [employer] ADMINISTRATORS [employer]EFITS ADMINISTRATORS [employer] BENEFITS ADMINISTRATORS [employer]EF[employer] ADMINISTRAT[employer]EF[employer] ADMINISTRAT[employer]ENEF[employer] ADMINISTRATORS [employer] BENEFITS ADMINISTRATORS [employer] BENEFITS ADMINISTRATORS [facility] [employer] ADMINISTRATORS Care Teams Creative Producer Relationship Specialty Start Date End Date Naida Salomon MD [address] [place] [address] [address] [place], [place] [phone] PCP - General Family Medicine 12/12/21 Additional Source Comments The information contained in this document represents components of the legal health record. It is not the complete legal health record.[facility]
--- OUTSIDE RECORDS SUMMARY | 2025-07-03 09:08 | XMS_ITS | Encounter Summary ---
Author Organization [facility] Address [address] [place] [address] Phone Care Team Providers Care Horticultural Worker Name Role Phone Naida Salomon MD Primary Care Provider [phone] Naida Salomon MD Unavailable [phone] Encounter Details Date Type Department Care Team (Late st Contact Info) Description 11/06/2024 Procedure Pass Non-Invasive Cardiology [address] [place] [address] Social History Tobacco Use Types Packs/Day Years Used Date Smoking Tobacco: Never Smokeless Tobacco: Never Alcohol Use Standard Drinks/Week Comments Not Currently 0 (1 standard drink = 0.6 oz pur e alcohol) Child or Family Care Answer Date Record ed Do you have problems with on e of the following making it difficult for you to work, study, or receive health care? No 01/16/2024 Education Answer Date Recorded Are you interested in help w ith more adult education (for example, completing high school, GED, job training, learning the Trinidadian language, technical skills, or developing parenting skills)? No 01/16/2024 Are you concerned about learning? Not on file 01/16/2024 No 01/16/2024 Yes 01/16/2024 Food Answer Date Recorded Within the past 6 months we worried whether our food would run out before we got money to buy more. Never True 01/16/2024 Within the past 6 months the food we bought just didn't last and we didn't have enough money to get more. Never True Residential Stability Answer Date Recor ded What is your housing situation today? I have josesito cain 01/16/2024 How many times have you move d in the past 12 months? Zero (I did not move) 01/16/2024 Paying for Meds Answer Date Recorded Do you have trouble paying for medicines? No 01/16/2024 Paying Utility Bills Answer Date Record ed Do you have trouble paying your heating or elect ricity bill? No 01/16/2024 Transportation Answer Date Recorded Has the lack of transportati on kept you from medical appointments or from getting medications? No 01/16/2024 Unemployment Answer Date Recorded Are you currently unemployed or working on a part-time or temporary basis, and looking for work? No 03/27/2022 Digital Access Answer Date Recorded No 01/16/2024 Yes 01/16/2024 Do you have reliable internet access at home? Ye s 01/16/2024 Do you have a device (e.g., phone, tablet, computer) with a working camera? Yes 01/16/2024 Intimate Partner Violence Answer Date R ecorded Denied Basic Needs Not on file 01/16/2024 In the past 12 months have y ou been in a relationship with a person who hurts, threatens, or tries to control you? No 01/16/2024 Worried food would run out Not on file 01/15 In the past 12 months have y ou been in a relationship with a person who hurts, threatens, or tries to control you? No 01/16/2024 Comments Unknown Sex and Gender Information Value Date Recorded Sex Assigned at Female 03/27/2022 7:38 PM EDT Legal Sex Female 5:49 PM EST Gender Identity Female 03/27/2022 7:38 PM EDT Sexual Orientation Not on file documented as of this encounter Plan of Treatment Upcoming Encounters Date Type Department Care Team (Late st Contact Info) Description 05/18/2025 Procedure Pass [facility] [address] [place] [address] 07/20/2025 10:15 AM EDT Nurse Only [facility] Medicine [address] [place], [place] [phone] Naida Salomon MD 234 [facility], [address] [place] [address] [email or web address] 11/09/2025 12:30 PM EST Office Visit [facility] Endocrinology [place] [address] [facility] ROB[place] Galindo [phone] Jelnea Swain PA-C [address] [place] [address] [email or web address] 02/01/2026 9:15 AM EDT Appointment [address] [address] Naida Salomon MD [address] [place] [address] 7 [place] [address] [email or web address] documented as of this encounter Visit Diagnoses Not on filedocumented in this encounter Additional Health Concerns Assessment Noted Time PHQ-9 Depression Total Score: 8 05/24/20 23 8:48 AM EDT PHQ-2 Depression Total Score: 1 01/16/20 24 8:49 AM EDT documented as of this encounter Care Teams Horticultural Worker Relationship Specialty Start Date End Date Naida Salomon MD [address] [place] [address] 7 [place] [address] [email or web address] PCP - General Family Medicine 12/12/21 Naida Salomon MD [address] [place] [address], [address] [place] [address] [email or web address] Insurance Assigned Provider 01/05/24 06/06/25 documented as of this encounter Additional Source Comments The information contained in this document represents components of the legal health record. It is not the complete legal health record.[facility]
--- OUTSIDE RECORDS SUMMARY | 2025-07-03 09:08 | XMS_ITS | Encounter Summary ---
Author Organization [facility] Address [address] [place] [address] [place] [address] Phone Care Team Providers Care Diabetes Clinical Manager Name Role Phone Naida Salomon MD Primary Care Provider [phone] Naida Salomon MD Unavailable [phone] Encounter Details Date Type Department Care Team (Late st Contact Info) Description 11/10/2024 Ancillary Orders [facility] Medicine [address] [place] [address] Naida Salomon MD 234 [facility] 7 [place] [address] [email or web address] Digital mucinous cyst of finger of right hand (Primary Dx); Trigger middle finger, unspecified laterality; Bilateral hand pain; Heart palpitations; Palpitations; Occipital headache; Urinary frequency; Dizziness Social History Tobacco Use Types Packs/Day Years [...] high school, GED, job training, learning the Telugu language, technical skills, or developing parenting skills)? [...] st Contact Info) Description 05/18/2025 Procedure Pass [address] [address] 07/20/2025 10:15 AM EDT Nurse Only [facility] Medicine [address] [place] [address] Naida Salomon MD 234 [facility], [address] [place] [address] 11/09/2025 12:30 PM EST Office Visit [facility] Endocrinology [address] [phone] Jelena Swain PA-C [address] [place] [address] 02/01/2026 9:15 AM EDT Appointment [address] [address] Naida Salomon MD 234 [facility] 7 [place] [address] documented as of this encounter Results * XR HAND 3 OR MORE VIEWS (BILATERAL) (11/10/2024 10:17 AM EST) Anatomical Region Laterality Modality Hand Left Computed Radiogr aphy 11/10/2024 3:48 PM EST Impressions 11/10/2024 3:50 PM EST FINDINGS/IMPRESSION: There is no evidence of acute fracture, subluxation, or dislocation. There is moderate degenerative change of the distal interphalangeal joints bilaterally, most marked at the small fingers. There is mild degenerative change of the thumb interphalangeal and proximal interphalangeal joints bilaterally. There are no acute soft tissue abnormalities. Narrative 11/10/2024 3:50 PM EST XR HAND 3 OR MORE VIEWS (BILATERAL) 11/10/2024 10:09 AM Referring clinician's provided indication for this examination in Epic: Pain; b/l hand stiffness and pain COMPARISON: None Procedure Note Digna Almanza MD - 11/10/2024 XR HAND 3 OR MORE VIEWS (BILATERAL) 11/10/2024 10:09 AM Referring clinician's provided indication for this examination in Epic:Pain; b/l hand stiffness and pain COMPARISON: None IMPRESSION: FINDINGS/IMPRESSION: There is no evidence of acute fracture, subluxation, or dislocation. Thereis moderate degenerative change of the distal interphalangeal jointsbilaterally, most marked at the small fingers. There is mild degenerativechange of the thumb interphalangeal and proximal interphalangeal jointsbilaterally. There are no acute soft tissue abnormalities. Naida Salomon MD IMG XR UPPER EXTREMITY Fi nal Result documented in this encounter Visit Diagnoses Diagnosis Bilateral hand pain Digital mucinous cyst of finger of right hand- Primary Trigger middle finger, unspecified laterality Bilateral hand pain Heart palpitations Palpitations Palpitations Occipital headache Headache Urinary frequency Dizziness Dizziness and giddiness documented in this encounter Additional Health Concerns Assessment Noted Time PHQ-9 Depression Total Score: 8 05/24/20 23 8:48 AM EDT PHQ-2 Depression Total Score: 1 01/16/20 24 8:49 AM EDT documented as of this encounter Care Teams Diabetes Clinical Manager Relationship Specialty Start Date End Date Naida Salomon MD [address] [place] [address] 7 [place] [address] PCP - General Family Medicine 12/12/21 Naida Salomon MD [address] [place] [address] 7 [place] [address] Insurance Assigned Provider 01/05/24 06/06/25 documented as of this encounter Additional Source Comments The information contained in this document represents components of the legal health record. It is not the complete legal health record.[facility]
== END 2025-07-03 09:13 | disposition home or self-care (01) ==
LOC: HO.HOS 08:45
PROVIDERS: PCP Internal Medicine
DX: M65.331 Trigger finger, right middle finger (principal)
CPT/HCPCS: 99204

== ENCOUNTER 2025-08-03 11:55 | Day surgery (SDC) | payer OTHER, SELFPAY ==
--- OUTSIDE RECORDS SUMMARY | 2025-07-07 10:34 | XMS_ITS | Encounter Summary ---
Author Organization [facility] Address [address] [place] [address] [place] [phone] Phone Care Team Providers Care Coal Equipment Operator Name Role Phone Naida Salomon MD Primary Care Provider [phone] Naida Salomon MD Unavailable [phone] Encounter Details Date Type Department Care Team (Late st Contact Info) Description 11/10/2024 Ancillary Orders [facility] Medicine [address] [place] [address] Naida Salomon MD 234 [facility] 7 [place] [address] [email or web address] Digital mucinous cyst of finger of right [...] high school, GED, job training, learning the Danish language, technical skills, or developing parenting skills)? [...] st Contact Info) Description 05/18/2025 Procedure Pass [address] [address] 07/20/2025 10:15 AM EDT Nurse Only [facility] Medicine [address] [place] [address] Naida Salomon MD 234 [facility], [address] [place] [address] 11/09/2025 12:30 PM EST Office Visit [facility] Endocrinology [address] [phone] Jelena Swain PA-C [address] [place] [address] 02/01/2026 9:15 AM EDT Appointment [address] [address] Naida Salomon MD 234 [facility] 7 [place] [address] documented as of this encounter Results * [...] documented as of this encounter Care Teams Coal Equipment Operator Relationship Specialty Start Date End Date Naida Salomon MD [address] [place] [address] 7 [place] [address] PCP - General Family Medicine 12/12/21 Naida Salomon MD [address] [place] [address] 7 [place] [address] Insurance Assigned Provider 01/05/24 06/06/25 documented as of this encounter Additional Source Comments The information contained in this document represents components of the legal health record. It is not the complete legal health record.[facility]
--- OUTSIDE RECORDS SUMMARY | 2025-07-07 10:34 | XMS_ITS | Clinical Summary ---
Author Organization [facility] Address [address] [place] [address] Phone Care Team Providers Care Core Drill Operator Name Role Phone Dameon Orlando MD Primary Care Provider [phone] Allergies Active Allergy Reactions Criticality Noted Date [...] (6 to 49 Years) Discontinued 06/22/2014 Insurance [facility] Care Teams Core Drill Operator Relationship Specialty Start Date End Date Dameon Orlando MD PCP - General Internal Medicine 04/07/21
--- OUTSIDE RECORDS SUMMARY | 2025-07-07 10:34 | XMS_ITS | Encounter Summary ---
Author Organization [facility] Address [address] [place] [address] [place] [address] Phone Care Team Providers Care Oracle Soa Consultant Name Role Phone Naida Salomon MD Primary Care Provider [phone] Reason for Visit * Reason Comments Medication Refill Encounter Details Date Type Department Care Team ([facility] st Contact Info) Description 06/25/2025 [facility] Medicine [address] [place] [address] Naida Salomon MD 234 [facility] 7 [place] [address] [email or web address] Medication Refill Social History Tobacco Use Types [...] high school, GED, job training, learning the Kiswahili language, technical skills, or developing parenting skills)? [...] st Contact Info) Description 05/18/2025 Procedure Pass [address] [address] 07/20/2025 10:15 AM EDT Nurse Only [facility] Family Medicine [address] [place] [address] Naida Salomon MD [address] [place] [address] 7 [place] [address] 11/09/2025 12:30 PM EST Office Visit [facility] Endocrinology [address] [phone] Jelena Swain PA-C [address] [place] [address] 02/01/2026 9:15 AM EDT Appointment [address] [address] Naida Salomon MD [address] [place] [address] documented as of this encounter Visit Diagnoses Diagnosis Hyperlipidemia with target low density lipoprotein (LDL) cholesterol less than 100 mg/dL documented in this encounter Additional Health Concerns Assessment Noted Time PHQ-9 Depression Total Score: 9 05/18/20 7:08 AM EDT PHQ-2 Depression Total Score: 2 05/18/20 7:08 AM EDT documented as of this encounter Care Teams [employer] Consultant Relationship Specialty Start Date End Date Naida Salomon MD [address] [place] [address] PCP - General Family Medicine 12/12/21 documented as of this encounter Additional Source Comments The information contained in this document represents components of the legal health record. It is not the complete legal health record.[facility]
--- OUTSIDE RECORDS SUMMARY | 2025-07-07 10:34 | XMS_ITS | Clinical Summary ---
Author Organization [facility] Address [address] [place] [address] Phone Care Team Providers Care Client Services Account Manager Name Role Phone Naida Salomon MD Primary Care Provider [phone] Allergies Active Allergy Reactions Criticality Noted Date [...] sure to discuss these symptoms with th machine builder at her appointment next week. Fatigue 07/07/2024 [...] her glucose levels. [facility] Labs ordered Assessment & Plan (02/02/2025 8:58 AM EDT): Control is very good based upon the patient's freestyle raymundo 3 sensor download. No frequent or severe hypoglycemia. Her glucose levels are doing well over all. Will maintain her regimen. Continue to work on eating healthy and being active. To call or message with any issues managing her glucose levels. [facility] Reviewed recent labs. Assessment & Plan (07/07/2024 [...] her glucose levels. Up to date with [facility]. Reviewed recent labs Assessment & Plan (04/25/2024 [...] is low normal- likely due to the terminal press operator use of metformin. Will have her start [...] hypoglycemia overnight. She has been working with recruiting administrator and made progress in working on mealtime [...] at night. She has appointment scheduled with [facility] on 05/08/2023. She started walking more regularly about a month ago. Congratulated on her efforts to improve her diabetes control. She is aware of her goal A1c below 7% and keeping her blood sugars between 70-180 over 70% of the time. We discussed symptoms, prevention and treatment of hypoglycemia. She was interested in using a home CGM, sent prescription on the new [employer] raymundo 3 CGM. If her blood sugars [...] lows. Also recommend working w behaviorally oriented recruiting administrator at [facility] given her binge cycle. Assessment & Plan [...] Type Department Care Team Description 06/25/2025 Refill [facility] Medicine [address] [place] [address] Naida Salomon MD Medication Refill 06/15/2025 Refill [facility]ology [address] [place] [address] Jessica Rodriguez MD Medication Refill 06/10/2025 Ancillary Orders [facility],Outside Imaging [address] [place] [address] Unknown, Unknown, 06/10/2025 Ancillary Orders [facility]Outside Imaging [address] [place] [address] Unknown, Unknown, 06/10/2025 Ancillary Orders [facility],Outside Imaging [address] [place] [address] Unknown, Unknown, MD 05/18/2025 8:00 AM EDT Office Visit [facility] [address] [place] [address] Naida Salomon MD Annual physical exam (Primary Dx); B12 deficiency; Delayed gastric emptying; Left hip pain; Screening mammogram for breast cancer; Need for prophylactic vaccination against Streptococcus pneumoniae (pneumococcus) 05/04/2025 1:10 PM EDT Office Visit [facility] Endocrinology [address] [address] Jelena Swain PA-C Well controlled type 2 diabetes mellitus (Primary Dx) 04/27/2025 9:41 AM EDT - 04/27/2025 11:59 PM EDT Hospital Encounter [facility] [address] [place] [address] Ana Rosa Penaloza NP Discharge Disposition: Home [...] high school, GED, job training, learning the Honduran language, technical skills, or developing parenting skills)? [...] st Contact Info) Description 05/18/2025 Procedure Pass [facility] [address] [place] [address] 07/20/2025 10:15 AM EDT Nurse Only [facility] [address] [place] [address] Naida Salomon MD 234 [facility], [address] [place] [address] [email or web address] 11/09/2025 12:30 PM EST Office Visit [facility] Endocrinology [address] [address] Jelena Swain PA-C [address] [place] [address] 02/01/2026 9:15 AM EDT Appointment [address] [address] Naida Salomon MD 234 [facility], [address] [place] [address] [email or web address] Health Maintenance Due Date Last Done Comments [...] EDT) ALT 16 0 - 40 U/L [facility] Blood 04/27/2025 9:54 AM EDT 04/27/2025 9:58 AM EDT Jelena FAIR-Susanne LAB BLOOD ORDERABL ES Final Result Performing Organization Address City/[facility]/ZIP Co de Phone Number [address] [address] * Aspartate aminotransferase (AST) (04/27/2025 9:54 AM EDT) AST 20 0 - 37 U/L [facility] Blood 04/27/2025 9:54 AM EDT 04/27/2025 9:58 AM EDT Jelena FAIR-C LAB BLOOD ORDERABL ES Final Result Performing Organization Address City/[facility]/ZIP Co de Phone Number [address] [address] * (ABNORMAL) Hemoglobin A1c (04/27/2025 9:54 AM EDT) HEMOGLOBIN A1C 6.1(H) 4.3 - 5.8 % [facility] Blood 04/27/2025 9:54 AM EDT 04/27/2025 9:59 AM EDT Jelena FAIR-C LAB BLOOD ORDERABL ES Final Result Performing Organization Address City/[facility]/ZIP Co de Phone Number [address] [address] * Vitamin B12 (04/27/2025 9:54 AM EDT) VITAMIN B12 455 232 - 1,245 pg/mL [facility] Blood 04/27/2025 9:54 AM EDT 04/27/2025 9:58 AM EDT us Jelena Swain PA-C LAB BLOOD ORDERABL ES Final Result Performing Organization Address City/[facility]/ZIP Co de Phone Number [address] [address] * (ABNORMAL) Basic metabolic panel (04/27/2025 9:54 AM EDT) SODIUM 140 133 - 146 mmol/L [facility] CHLORIDE 104 96 - 108 mmol/L [facility] POTASSIUM 4.3 3.3 - 5.1 mmol/L [facility] CO2 23 21 - 35 mmol/L [facility] BUN 15 6 - 19 mg/dL [facility] CREATININE 1.00 0.5 - 1.5 mg/dL [facility] GLUCOSE 183(H) 70 - 99 mg/dL [facility] CALCIUM 9.7 8.4 - 10.3 mg/dL [facility] EGFR 67 >59 mL/min/1.7 3m2 [facility] Comment:Estimated glomerular filtration rate calculated using the CKD-EPI refit equation. ANION GAP 17 10 - 20 mmol/L [facility] Blood 04/27/2025 9:54 AM EDT 04/27/2025 9:58 AM EDT us Jelena Swain PA-C LAB BLOOD ORDERABL ES Final Result Performing Organization Address City/[facility]/ZIP Co de Phone Number [address] [address] * DIABETES EYE EXAM FOR RESULT ENTRY ONLY (06/03/2024 4:09 PM EDT) us Historical Provider HEALTH MAINTENANCE Final Result * Pap Test (01/16/2024 12:00 AM EDT) 01/16/2024 01/17/2024 8:5 9 AM EDT Narrative SEE NARRATIVE - 01/23/2024 9:42 AM EDT [address] [address] Lens Engraver: Berenice Miller MD [employer] Cytology Report FINAL DIAGNOSIS A. PAP SMEAR [...] 59, 66, 68) Note: Testing performed by [employer] Onclarity HR-HPV analysis. Clinical correlation is advised. This HPV test was performed at [facility], [address] [place] [address]. This test has been FDA approved for both SurePath and ThinPrep cervical cytology specimens. The accuracy and precision of this test for all other specimen sources has been verified in the Cytopathology Laboratory of the [facility] and has not been cleared or approved by the U.S. Food and Drug Administration. Clinical correlation is advised. CLINICAL HISTORY Date of Last Menstrual Period: 01-16-2024 Other Clinical Conditions: Screening Pap SPECIMEN SOURCE A: PAP SMEAR (SUREPATH) CE Patient Name: ADRIENNE PRESTON : 1970 (Age: 53) Sex: F Institution: [facility] Location: [facility] Date of Collection: 01/16/2024 Date of Reported: [...] Most Recently Relevant to Health Maintenance Insurance [employer] B[employer] [facility] [employer] Care Teams Client Services Account Manager Relationship Specialty Start Date End Date Naida Salomon MD [address] [place] [address] [address] [place], [place] [id number] PCP - General Family Medicine 12/12/21 Additional Source Comments The information contained in this document represents components of the legal health record. It is not the complete legal health record.[facility]
--- OUTSIDE RECORDS SUMMARY | 2025-07-07 10:34 | XMS_ITS | Encounter Summary ---
Author Organization [facility] Address [address] [place] [address] Phone Care Team Providers Care Rag Sorter Name Role Phone Naida Salomon MD Primary Care Provider [phone] Naida Salomon MD Unavailable [phone] Encounter Details Date Type Department Care Team (Late st Contact Info) Description 11/06/2024 Procedure Pass Non-Invasive Cardiology [address] [place] [address] Social History Tobacco Use Types Packs/Day Years [...] high school, GED, job training, learning the Kazakh language, technical skills, or developing parenting skills)? [...] st Contact Info) Description 05/18/2025 Procedure Pass [facility] [address] [place] [address] 07/20/2025 10:15 AM EDT Nurse Only [facility] Medicine [address] [place], [place] [phone] Naida Salomon MD 234 [facility], [address] [place] [address] [email or web address] 11/09/2025 12:30 PM EST Office Visit [facility] Endocrinology [place] 40 [facility] [place] [address] Jelena Swain PA-C [address] [place] [address] [email or web address] 02/01/2026 9:15 AM EDT Appointment [address] [address] Naida Salomon MD [address] [place] [address] [address] [address] [email or web address] documented as of this encounter Visit Diagnoses Not on filedocumented in this encounter Additional Health Concerns Assessment Noted Time PHQ-9 Depression Total Score: 8 05/24/20 23 8:48 AM EDT PHQ-2 Depression Total Score: 1 01/16/20 24 8:49 AM EDT documented as of this encounter Care Teams Rag Sorter Relationship Specialty Start Date End Date Naida Salomon MD [address] [place] [address] [address] [place] [address] [email or web address] PCP - General Family Medicine 12/12/21 Naida Salomon MD [address] [place] [address], [address] [place] [address] [email or web address] Insurance Assigned Provider 01/05/24 06/06/25 documented as of this encounter Additional Source Comments The information contained in this document represents components of the legal health record. It is not the complete legal health record.[facility]
--- NOTE | 2025-08-03 11:43 | MHC.SHP ---
Pre-Procedural Eval Section A - 24 Hr Update-Section A only Date of Service: 08/03/25 The patient is an INPATIENT: No Changes since office visit: No Cold of Flu in the past 2 weeks, No New Medical Problems, No Changes in Medication and No Patient answered all questions The patient has been examined within 24 hours of the surgical procedure. The History & Physical has been completed within 30 days and I have reviewed it.: Yes Section B - Complete if H&P > 30 days Chief Complaint: Trigger finger, right middle finger Allergies: Allergies Allergy/AdvReac Type Severity Reaction Status Date / Time exenatide (From BYETTA) Allergy Severe ANAPHYLAXIS Unverified 07/03/25 08:57 erythromycin base AdvReac Intermediate STOMACH Unverified 07/03/25 08:57 (ERYTHROMYCIN BASE) UPSET WINE Allergy Unknown RASH Uncoded 07/03/25 08:57 Plan Diagnosis/Plan: Unchanged I have reviewed the history and physical and performed a pertinent physical examination on my patient. No changes have occurred unless specified. Time Spent With Patient Time: Total time managing care of this patient today ____ minutes.
--- NOTE | 2025-08-03 11:44 | P.OP_ITS ---
Operative Note Operative Note Date of Service: 08/03/25 Narrative: Operative Note Preop diagnosis: 1. Right middle finger Trigger finger Postop diagnosis: Same Procedure: 1. Right middle finger A1 fatemeh release Surgeon: Mela Mukherjee MD Adjunct Political Science Instructor: None Anesthesia: local block using 1% lidocaine with epinephrine Findings: No locking or catching after A1 fatemeh release EBL: Less than 5 mL Tourniquet time: None Specimens: None Complications: None Disposition: Brought to recovery room in stable condition Plan: Follow-up for 10-14 days for wound check and suture removal Indications: The patient is 54 years old, with a right middle finger tristen er finger that has been unresponsive to nonoperative management. The risks and benefits of operative treatment including but not limited to risk of damage to blood vessels, nerves, tendons, infection, persistent pain, persistent symptoms, recurrence or possible need for additional surgery were discussed with the patient and the patient wishes to proceed with surgery. Procedure: Once consent was obtained a local block was performed in the preop area using a combination of 1% lidocaine with epinephrine. The patient was then brought back to the operating suite and placed on the operative table in supine position. The right upper extremity was prepped and draped in a standard surgical fashion. Once assured that we had a good block, a 1.5 cm oblique incision was made centered over the A1 fatemeh of the right middle finger . The incision was made through the skin to the subcutaneous tissues using a #15 blade. Careful dissection was made down to the level of the A1 fatemeh using tenotomy scissors, with care being taken to protect the nearby neurovascular structures. A longitudinal incision was made in the A1 fatemeh 1st using a #15 blade, then using tenotomy scissors under direct visualization. The A1 fatemeh was noted to be thickened. Following our A1 fatemeh release, we no longer saw any locking or catching of the digit with flexion and extension. Once satisfied with our A1 fatemeh release the wound was copiously irrigated with normal saline and hemostasis was obtained with a brief period of local pressure. The skin edges were reapproximated with some 5.0 nylon suture material and a sterile dressing was applied. The patient appears to have tolerated the procedure well and with no complications. All digits were well vascularized at the conclusion of the case.
[2025-08-03 13:52] VITALS: BP 131/79; PULSE 84; RESP 16; O2SAT 99
== END 2025-08-03 14:11 | disposition home or self-care (01) ==
PROVIDERS: PCP Student in an Organized Health Care Education/Training Program; Visit Provider Orthopaedic Surgery
PROC: (CPT 26055; principal; 2025-08-03 14:50)
DX: M65.331 Trigger finger, right middle finger (principal); E11.9 Type 2 diabetes mellitus without complications; Z88.1 Allergy status to other antibiotic agents; Z88.8 Allergy status to other drugs, medicaments and biological substances
CPT/HCPCS: 26055; J0165; J2003

== ENCOUNTER → 2025-08-03 11:55 | Outpatient (BNV) | payer OTHER, SELFPAY | PROVIDERS: PCP Student in an Organized Health Care Education/Training Program; Visit Provider Orthopaedic Surgery | DX: M65.331 Trigger finger, right middle finger (principal) | CPT/HCPCS: 26055 ==

== ENCOUNTER 2025-08-19 09:25 | Outpatient (AMB) | payer OTHER, SELFPAY ==
--- NOTE | 2025-08-19 09:43 | MHC.OFFVIS ---
Vital Signs 08/19/25 09:46 Height 5 ft 5 in Weight 180 lb BMI 30.0 Intake Visit Reasons: PO RT MF trigger 08/03/25 AR Intake Note: Adrienne is a 54 year old right hand dominant female who presents today for a Post-Operative Visit status post Right Middle Finger Trigger Release performed by Dr. Mukherjee on 08/03/25. Patient reports she is doing well however she continues having locking and catching of her PIP joint. She is not taking anything for pain at this time. Sutures removed and steri strips applied. Allergies exenatide (From BYETTA) Allergy (Severe, Verified 08/19/25 09:53) ANAPHYLAXIS erythromycin base (ERYTHROMYCIN BASE) Adverse Reaction (Intermediate, Verified 08/19/25 09:53) STOMACH UPSET WINE Allergy (Unknown, Uncoded 08/19/25 09:53) RASH HPI HPI PO RT MF trigger 08/03/25 AR: Details: Adrienne is a 54 year old right hand dominant female who presents today for a Post-Operative Visit status post Right Middle Finger Trigger Release performed by Dr. Mukherjee on 08/03/25. Patient reports she is doing well however she continues having a popping sensation of her DIP joint when attempting to extend at this joint. She is not taking anything for pain at this time. Sutures removed and steri strips applied. 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 Neuro: Normal sensation of the tips of all digits of the right hand at this time Vascular: Cap refill brisk Pain: No tenderness to palpation about the incision site over right middle finger A1 fatemeh No pain with range of motion of the right middle finger ROM: Patient is able to make a closed fist and extend all digits of the right hand fully Skin: No lacerations or abrasions. General: No ecchymosis, erythema, or evidence of infection. Psych: Appears grossly normal Affect normal Attitude cooperative Assessment & Plan Assessment & Plan (1) Trigger finger, right middle finger: Code(s): M65.331 - Trigger finger, right middle finger Category: Medical Plan 1. Status post right middle finger trigger release DOS 08/03/2025 Patient appears to be recovering well postoperatively Patient is educated about the typical recovery course No under water times one-week, 2 lb weight limit x2 weeks Patient appears to be recovering very well, and requires no further acute follow-up with us postoperatively Patient is educated and worrisome signs and symptoms, and should call us if they experience any of these, including but not limited to redness, swelling, increased pain, and discharge Patient understands this and is amenable to this plan Coding Level of Care Code Global (73238) Diagnoses Trigger finger, right middle finger M65.331
--- OUTSIDE RECORDS SUMMARY | 2025-08-19 17:21 | XMS_ITS | Encounter Summary ---
Author Organization [facility] Address [address] [place] [address] [place] [address] Phone Care Team Providers Care Rotary Furnace Operator Name Role Phone Naida Salomon MD Primary Care Provider [phone] Reason for Visit * Reason Comments Medication Refill Encounter Details Date Type Department Care Team ([facility] st Contact Info) Description 06/25/2025 [facility]ill [facility] [address] [place] [address] Naida Salomon MD 234 [facility] [address] [place] [address] [email or web address] Medication Refill Social History Tobacco Use Types [...] high school, GED, job training, learning the Niuean language, technical skills, or developing parenting skills)? [...] st Contact Info) Description 05/18/2025 Procedure Pass [address] [address] 09/14/2025 10:45 AM EST Nurse Only [facility] Family Medicine [address] [place] [address] Naida Salomon MD [address] [place] [address] 11/09/2025 12:30 PM EST Office Visit [facility] Endocrinology [address] [address] Jelena Swain PA-C [address] [place] [address] 02/01/2026 9:15 AM EDT Appointment [address] [address] Naida Salomon MD [address] [place] [address] documented as of this encounter Visit Diagnoses Diagnosis Hyperlipidemia with target low density lipoprotein (LDL) cholesterol less than 100 mg/dL documented in this encounter Additional Health Concerns Assessment Noted Time PHQ-9 Depression Total Score: 9 05/18/20 7:08 AM EDT PHQ-2 Depression Total Score: 2 05/18/20 7:08 AM EDT documented as of this encounter Care Teams Rotary Furnace Operator Relationship Specialty Start Date End Date Naida Salomon MD [address] [place] [address] 7 [place] [address] [email or web address] PCP - General Family Medicine 12/12/21 documented as of this encounter Additional Source Comments The information contained in this document represents components of the legal health record. It is not the complete legal health record.[facility]
--- OUTSIDE RECORDS SUMMARY | 2025-08-19 17:21 | XMS_ITS | Clinical Summary ---
Author Organization [facility] Address [address] [place] [address] Phone Care Team Providers Care Hearing Aid Consultant Name Role Phone Dameon Orlando MD Primary Care Provider [phone] Allergies Active Allergy Reactions Criticality Noted Date [...] (6 to 49 Years) Discontinued 06/22/2014 Insurance [facility] Care Teams Hearing Aid Consultant Relationship Specialty Start Date End Date Dameon Orlando MD PCP - General Internal Medicine 04/07/21
--- OUTSIDE RECORDS SUMMARY | 2025-08-19 17:22 | XMS_ITS | Encounter Summary ---
Author Organization [facility] Address [address] [place] [address] [place] [address] Phone Care Team Providers Care Grainer Machine Name Role Phone Naida Salomon MD Primary Care Provider [phone] Naida Salomon MD Unavailable [phone] Encounter Details Date Type Department Care Team (Late st Contact Info) Description 11/10/2024 Ancillary Orders [facility] Medicine [address] [place] [address] Naida Salomon MD 234 [facility] [address] [place] [address] [email or web address] Digital mucinous cyst of finger of right [...] st Contact Info) Description 05/18/2025 Procedure Pass [address] [address] 09/14/2025 10:45 AM EST Nurse Only [facility] Medicine [address] [place] [address] Naida Salomon MD [address] [place] [address] [address] [place] [address] 11/09/2025 12:30 PM EST Office Visit [facility] Endocrinology [address] [address] Jelena Swain PA-C [address] [place] [address] 02/01/2026 9:15 AM EDT Appointment [address] [address] Naida Salomon MD [address] [place] [address] 7 [place] [address] documented as of this encounter Results * [...] documented as of this encounter Care Teams Grainer Machine Relationship Specialty Start Date End Date Naida Salomon MD [address] [place] [address] 7 [place] [address] [email or web address] PCP - General Family Medicine 12/12/21 Naida Salomon MD [address] [place] [address] 7 [place] [address] Insurance Assigned Provider 01/05/24 06/06/25 documented as of this encounter Additional Source Comments The information contained in this document represents components of the legal health record. It is not the complete legal health record.[facility]
--- OUTSIDE RECORDS SUMMARY | 2025-08-19 17:22 | XMS_ITS | Clinical Summary ---
Author Organization [facility] Address [address] [place] [address] Phone Care Team Providers Care Solar Energy Systems Engineer Name Role Phone Naida Salomon MD Primary Care Provider [phone] Allergies Active Allergy Reactions Criticality Noted Date [...] Additional Information Patient not taking.Reported on 05/18/2025 meloxicam (MOBIC) 15 MG tablet [...] mouth daily. 90 tablet 3 025 Active glipiZIDE (GLUCOTROL XL) 2.5 MG 24 hr tabletIndications :Well controlled type 2 diabetes mellitus Take 1 tablet (2.5 mg total) by mouth daily with breakfast. 90 tablet 1 025 Active metFORMIN (GLUCOPHAGE-XR) 500 MG 24 hr tabletIndications :Type 2 diabetes mellitus 500 mg in the AM and 1000 MG in the PM 360 tablet 3 025 Active metFORMIN (GLUCOPHAGE-XR) 500 MG 24 hr tabletIndications :Type 2 diabetes mellitus TAKE TWO TABLETS BY MOUTH EVERY MORNING AND TAKE TWO TABLETS BY MOUTH EVERY EVENING 360 tablet 3 024 2024 Discontinued Hospital, Clinic, or Other Facility Administered Medication Ordered Dose Route Frequency Start Date End Date Status cyanocobalamin (VITAMIN B-12) 1,000 mcg/mL injection 1,000 mcgIndications:B12 deficiency 1000 mcg IM Every 2 Months 05/18/2025 Active cyanocobalamin (VITAMIN B-12) 1,000 mcg/mL injection 1,000 mcgIndications:B12 deficiency 1000 mcg IM Every 30 days 08/04/2024 07/30/2025 Ended Active Problems Problem Noted Date Diagnosed Date [...] sure to discuss these symptoms with th internal controls analyst at her appointment next week. Fatigue 07/07/2024 [...] her glucose levels. Up to date with [facility]. Labs ordered Assessment & Plan (02/02/2025 8:58 AM EDT): Control is very good based upon the patient's freestyle raymundo 3 sensor download. No frequent or severe hypoglycemia. Her glucose levels are doing well over all. Will maintain her regimen. Continue to work on eating healthy and being active. To call or message with any issues managing her glucose levels. Up to date with [facility]. Reviewed recent labs. Assessment & Plan (07/07/2024 [...] her glucose levels. Up to date with [facility]. Reviewed recent labs Assessment & Plan (04/25/2024 [...] is low normal- likely due to the fdc use of metformin. Will have her start [...] hypoglycemia overnight. She has been working with computer patternmaker and made progress in working on mealtime [...] at night. She has appointment scheduled with [facility] on 05/08/2023. She started walking more regularly about a month ago. Congratulated on her efforts to improve her diabetes control. She is aware of her goal A1c below 7% and keeping her blood sugars between 70-180 over 70% of the time. We discussed symptoms, prevention and treatment of hypoglycemia. She was interested in using a home CGM, sent prescription on the new Prestodiag raymundo 3 CGM. If her blood sugars [...] lows. Also recommend working w behaviorally oriented computer patternmaker at [facility] given her [...] Encounters Date Type Department Care Team Description 08/10/2025 Refill [facility] [address] [place] [address] Naida Salomon MD Medication Refill 07/20/2025 10:15 AM EDT Nurse Only [address] [address] Naida Salomon MD B12 deficiency (Primary Dx) 06/25/[address] [address] Naida Salomon MD Medication Refill 06/15/2025 Refill [facility] Endocrinology [address] [place] [address] Jessica Rodriguez MD Medication Refill 06/10/2025 Ancillary Orders [facility] [address] [place] [address] Unknown, Unknown, 06/10/2025 Ancillary Orders [facility] [address] [place] [address] Unknown, Unknown, 06/10/2025 Ancillary Orders [facility] [address] [place] [address] Unknown, Unknown, from Last 3 Months Immunizations Immunization Administration [...] high school, GED, job training, learning the Greek language, technical skills, or developing parenting skills)? [...] st Contact Info) Description 05/18/2025 Procedure Pass [facility], [address] [address] 09/14/2025 10:45 AM EST Nurse Only [facility] Medicine [address] [place] [phone] Naida Salomon MD [address] [place] [address], [address] [place] [address] 11/09/2025 12:30 PM EST Office Visit [facility] Endocrinology [address] [phone] Jelena Swain PA-C [address] [place] [address] 02/01/2026 9:15 AM EDT Appointment [facility], [address] [address] Naida Salomon MD [address] [place] [address], [address] [place], [place] [id number] [email or web address] Health Maintenance Due Date Last Done Comments [...] on patient's age to complete this topic IPV VACCINES Aged Out No longer eligi ble [...] type 2 diabetes mellitus BASIC METABOLIC PANEL (BMP) Routine 04/27/2025 9:54 AM EDT Well controlled type 2 diabetes mellitus HM DIABETES EYE EXAM FOR RESULT ENTRY ONLY Routine 06/03/2024 4:09 PM EDT PAP TEST Routine 01/16/2024 12:00 AM EDT BI MAMMOGRAM OUTSIDE (NO INTERPRETATION) Routine 09/13/2023 12:00 AM EST from Last 3 Months or Most Recently Relevant to Health Maintenance Results * (ABNORMAL) Hemoglobin A1c (04/27/2025 9:54 AM EDT) HEMOGLOBIN A1C 6.1(H) 4.3 - 5.8 % [facility] Blood 04/27/2025 9:54 AM EDT 04/27/2025 9:59 AM EDT us Jelena Swain PA-C LAB BLOOD BKR HELGA STEPHENS Final Result [facility] [address] [place] [address] * (ABNORMAL) Basic metabolic panel (04/27/2025 9:54 AM EDT) SODIUM 140 133 - 146 mmol/L [facility] CHLORIDE 104 96 - 108 mmol/L [facility] POTASSIUM 4.3 3.3 - 5.1 mmol/L [facility] CO2 23 21 - 35 mmol/L [facility] BUN 15 6 - 19 mg/dL [facility] CREATININE 1.00 0.5 - 1.5 mg/dL [facility] GLUCOSE 183(H) 70 - 99 mg/dL [facility] CALCIUM 9.7 8.4 - 10.3 mg/dL [facility] EGFR 67 >59 mL/min/1.7 3m2 [facility] Comment:Estimated glomerular filtration rate calculated using the CKD-EPI refit equation. ANION GAP 17 10 - 20 mmol/L [facility] Blood 04/27/2025 9:54 AM EDT 04/27/2025 9:58 AM EDT Jelena Swain PA-C LAB BLOOD BKR HELGA STEPHENS Final Result [address] [address] * DIABETES EYE EXAM FOR RESULT ENTRY ONLY (06/03/2024 4:09 PM EDT) Historical Provider HEALTH MAINTENANCE Final Result * Pap Test (01/16/2024 12:00 AM EDT) Report [address] [address] Printed Circuit Board Panels Trimmer: Berenice Miller MD MILLING/POLISHING OPERATOR Cytology Report FINAL DIAGNOSIS A. PAP SMEAR [...] 59, 66, 68) Note: Testing performed by [facility] HR-HPV analysis. Clinical correlation is advised. This HPV test was performed at [address] This test has been FDA approved for both SurePath and ThinPrep cervical cytology specimens. The accuracy and precision of this test for all other specimen sources has been verified in the Cytopathology Laboratory of the [facility] and has not been cleared or approved by the U.S. Food and Drug Administration. Clinical correlation is advised. CLINICAL HISTORY Date of Last Menstrual Period: 01-16-2024 Other Clinical Conditions: Screening Pap SPECIMEN SOURCE A: PAP SMEAR (SUREPATH) CE Patient Name: ADRIENNE PRESTON : 1970 (Age: 53) Sex: F Institution: [facility] Location: [facility] Date of Collection: 01/16/2024 Date of Reported: 01/23/2024 09:42 Results to: Naida Manzanares MD [facility] Final Diagnosis A. PAP SMEAR (SUREPATH) CE: SPECIMEN ADEQUACY: Satisfactory for evaluation; transformation zone present. INTERPRETATION: NEGATIVE FOR INTRAEPITHELIAL LESION OR MALIGNANCY. [facility] Results\Inter pretation A. PAP SMEAR (SUREPATH) CE: Human Papilloma Virus TestNEGATIVE for high-risk Human Papilloma Virus types 16, 18, 45 and the Other high risk probe set (Includes 31, 33, 35, 39, 51, 52, 56, 58, 59, 66, 68)Note: Testing performed by [facility] [place] HR-HPV analysis. Clinical correlation is advised. This HPV test was performed at [address] This test has been FDA approved for both SurePath and ThinPrep cervical cytology specimens. The accuracy and precision of this test for all other specimen sources has been verified in the Cytopathology Laboratory of the [facility] and has not been cleared or approved by the U.S. Food and Drug Administration. Clinical correlation is advised. [facility] Conversion Type (Conversion Source) 01/16/2024 01/17/2024 8:59 AM EDT us Naida Salomon MD CYTOLOGY ORDERABLES Edite d Result - Final [facility] [address] [place] [address] * Mammogram Outside (No Interpretation) (09/13/2023 12:00 AM EST) Narrative Record, 06/10/2025 3:39 PM EDT This study is for PACS storage only and not for interpretation. Procedure Note Record, 06/10/2025 This study is for PACS storage only and not for interpretation. us Unknown Unknown IMG OUTSIDE IMAGING W/OUT INT ERPRETATION Final Result from Last 3 Months or Most Recently Relevant to Health Maintenance Insurance [place] [employer] [place] [employer] [place] [place] [place] B[employer]MIN[employer] [place] [employer]EF[employer]MINIST[employer]AT[employer]ENEFITS ADMINISTRATORS Care Teams Solar Energy Systems Engineer Relationship Specialty Start Date End Date Naida Salomon MD [address] [place] [address] [address] [place], [place] [phone] [email or web address] PCP - General Family Medicine 12/12/21 Additional Source Comments The information contained in this document represents components of the legal health record. It is not the complete legal health record.[facility]
--- OUTSIDE RECORDS SUMMARY | 2025-08-19 17:22 | XMS_ITS | Encounter Summary ---
Author Organization [facility] Address [address] [place] [address] Phone Care Team Providers Care Automation Engineering Manager Name Role Phone Naida Salomon MD Primary Care Provider [phone] Naida Salomon MD Unavailable [phone] Encounter Details Date Type Department Care Team (Late st Contact Info) Description 11/06/2024 Procedure Pass Non-Invasive Cardiology [address] [place] [address] Social History Tobacco Use Types Packs/Day Years [...] high school, GED, job training, learning the Micronesian language, technical skills, or developing parenting skills)? [...] st Contact Info) Description 05/18/2025 Procedure Pass [facility] [address] [place] [address] 09/14/2025 10:45 AM EST Nurse Only [facility] [address] [place], [place] [phone] Naida Salomon MD [address] [facility], [address] [place] [address] 11/09/2025 12:30 PM EST Office Visit [facility] Endocrinology [place] [address] [facility] [place] [phone] Jelena Swain PA-C [address] [place] [address] 02/01/2026 9:15 AM EDT Appointment [address] [address] Naida Salomon MD [address] [place] [address] [address] [place] [id number] documented as of this encounter Visit Diagnoses Not on filedocumented in this encounter Additional Health Concerns Assessment Noted Time PHQ-9 Depression Total Score: 8 05/24/20 23 8:48 AM EDT PHQ-2 Depression Total Score: 1 01/16/20 24 8:49 AM EDT documented as of this encounter Care Teams Automation Engineering Manager Relationship Specialty Start Date End Date Naida Salomon MD [address] [place] [address] [address] [place] [id number] PCP - General Family Medicine 12/12/21 Naida Salomon MD [address] [place] [address], [address] [place] [id number] Insurance Assigned Provider 01/05/24 06/06/25 documented as of this encounter Additional Source Comments The information contained in this document represents components of the legal health record. It is not the complete legal health record.[facility]
== END 2025-08-19 10:01 | disposition home or self-care (01) ==
LOC: HO.HOS 09:26
PROVIDERS: PCP Internal Medicine
DX: M65.331 Trigger finger, right middle finger (principal)
CPT/HCPCS: 99024